=== PATIENT | female | born 1950 | race Caucasian/White ===

== ENCOUNTER 2017-10-03 09:42 | Emergency (ER) | payer BC ==
[2017-10-03 10:49] VITALS: BP 145/84
--- NOTE | 2017-10-03 11:17 | UC ---
Throat Pain/Nasal Aakash HPI - HPI Summary HPI Summary: Pt c/o sinus congestion pressure and pain X 1 week. Pt has history of sinus infections. - History of Current Complaint Chief Complaint: UCRespiratory Stated Complaint: SINUS/MCGARRY Time Seen by Provider: 10/03/17 11:08 Hx Obtained From: Patient Hx Last Menstrual Period: n/a ?: No Onset/Duration: Gradual Onset, Lasting Days, Still Present, Worse Since - onset Severity: Moderate Cough: None Associated Signs & Symptoms: Positive: Sinus Discomfort - Epiglottits Risk Factors Epiglottis Risk Factors: Negative - Allergies/Home Medications Allergies/Adverse Reactions: Allergies Allergy/AdvReac Type Severity Reaction Status Date / Time Sulfa Drugs AdvReac See Comment Verified 10/03/17 10:48 Home Medications: Home Medications Ibuprofen TAB* [Motrin TAB* 400 MG] 400 mg PO BID 10/03/17 [History Confirmed ] PMH/Surg Hx/FS Hx/Imm Hx Previously Healthy: Yes - Surgical History Surgical History: Yes Surgery Procedure, Year, and Place: hernia surgery. R ankle surgery 2006. 2001 lumpectomy to L breast. L knee surgery- 1966. FX RIGHT WRIST 2012. right total knee 07/2015 - Family History Known Family History: Positive: Cardiac Disease - Social History Occupation: Retired Lives: With Family Alcohol Use: Rare Substance Use Type: None Smoking Status (MU): Light Every Day Tobacco Smoker Have You Smoked in the Last Year: Yes - Immunization History Most Recent Influenza Vaccination: Review of Systems Constitutional: Negative Skin: Negative Eyes: Negative ENT: Sinus Congestion, Sinus Pain/Tenderness Respiratory: Negative Cardiovascular: Negative Gastrointestinal: Negative Genitourinary: Negative Motor: Negative Neurovascular: Negative Musculoskeletal: Negative Neurological: Headache Psychological: Negative Is Patient Immunocompromised?: No All Other Systems Reviewed And Are Negative: Yes Physical Exam Triage Information Reviewed: Yes Appearance: Ill-Appearing Vital Signs: Initial Vital Signs Temp 98.3 F 10/03/17 10:45 Pulse 83 10/03/17 10:45 Resp 18 10/03/17 10:45 BP 145/84 10/03/17 10:45 Pulse Ox 99 10/03/17 10:45 Vital Signs Reviewed: Yes Eye Exam: Normal ENT Exam: Other ENT: Positive: Nasal congestion, Sinus tenderness Dental Exam: Normal Neck exam: Normal Respiratory Exam: Normal Cardiovascular Exam: Normal Musculoskeletal Exam: Normal Neurological Exam: Normal Psychological Exam: Normal Skin Exam: Normal Throat Pain/Nasal Course/Dx - Differential Dx/Diagnosis Differential Diagnosis/HQI/PQRI: Sinusitis, URI Provider Diagnoses: sinusitis Discharge - Discharge Plan Condition: Stable Disposition: HOME Prescriptions: Amoxicillin PO (*) [Amoxicillin 875 MG (*)] 875 mg PO Q12H #20 tab predniSONE TAB* [Deltasone TAB*] 30 mg PO DAILY #12 tab Pseudoephedrine-Guaifenesin [Mucinex D 60-600 mg] 1 tab PO DAILY #10 tab Patient Education Materials: Sinusitis (ED) Referrals: Oscar Singer DO [Primary Care Provider] - If Needed
== END 2017-10-03 11:28 | disposition home or self-care (01) ==
LOC: UCCORT 09:42
DX: J32.9 Chronic sinusitis, unspecified (principal); Z72.0 Tobacco use
CPT/HCPCS: 99212; G0463

== ENCOUNTER 2019-05-12 07:21 | Emergency (ER) | payer MEDICARE, BC ==
--- NOTE | 2019-05-12 07:27 | UC ---
General HPI - HPI Summary HPI Summary: Allergy sulfa Pleasant 68 yo female c/o last several days pressure, pain in sinuses - bilateral. Symptoms not better, indeed have been worsening. No known fever perse; however, she did wake up yesterday with sheets and pillowcase soaked. No rash. Pain frontal and maxillary regions. Some post nasal drip. No sob / cp. + dry cough (relates to post nasal drip). No GI / issues reported. - History of Current Complaint Stated Complaint: HEADACHE,SINUS CONCERN Hx Obtained From: Patient Hx Last Menstrual Period: n/a - Allergy/Home Medications Allergies/Adverse Reactions: Allergies Allergy/AdvReac Type Severity Reaction Status Date / Time Sulfa (Sulfonamide Allergy Bruising Verified 05/12/19 07:41 Antibiotics) Home Medications: Home Medications Ascorbic Acid TAB* [Vitamin C TAB*] 500 mg PO QAM 05/12/19 [History Confirmed 05/12/19] Biotin 5,000 mcg PO QAM 05/12/19 [History Confirmed 05/12/19] Bupropion XL* [Wellbutrin XL *] 300 mg PO QAM 05/12/19 [History Confirmed ] Cholecalciferol TAB* [Vitamin D TAB*] 2,000 units PO QAM 05/12/19 [History Confirmed 05/12/19] DULoxetine DR CAP* [Cymbalta CAP*] 20 mg PO QAM 05/12/19 [History Confirmed ] Desloratidine (NF) [Clarinex (NF)] 5 mg PO QAM 05/12/19 [History Confirmed 05/12] Epinastine 0.05% OPHTH(NF) [Elestat 0.05% OPTH PADILLA (NF)] 1 drop BOTH EYES BID [History Confirmed 05/12/19] Fesoterodine (NF) [Toviaz (NF)] 8 mg PO BEDTIME 05/12/19 [History Confirmed ] Levothyroxine TAB* [Synthroid TAB*] 100 mcg PO QAM 05/12/19 [History Confirmed 05/12/19] Mometasone NASAL (NF) [Nasonex (NF)] 1 spray BOTH NARES BID 05/12/19 [History Confirmed 05/12/19] Montelukast Sodium TAB* [Singulair TAB*] 10 mg PO QPM 05/12/19 [History Confirmed 05/12/19] Naproxen Sodium [Aleve] 220 mg PO BID 05/12/19 [History Confirmed 05/12/19] [place]-3 Fatty Acids (Nf) [Fish Oil (NF)] 1,000 mg PO QAM 05/12/19 [History Confirmed 05/12/19] Omeprazole CAP (NF) [Prilosec CAP* 20 MG] 20 mg PO QAM 05/12/19 [History Confirmed 05/12/19] Vitamin THERAPEUTIC TAB* [Theragran TAB*] 1 tab PO QAM 05/12/19 [History Confirmed 05/12/19] PMH/Surg Hx/FS Hx/Imm Hx Previously Healthy: Yes - Surgical History Surgical History: Yes Surgery Procedure, Year, and Place: hernia surgery. R ankle surgery 2006. 2001 lumpectomy to L breast. L knee surgery- 1966. FX RIGHT WRIST 2012. right total knee 07/2015 - Family History Known Family History: Positive: None, Cardiac Disease - Social History Alcohol Use: Rare Substance Use Type: None Smoking Status (MU): Light Every Day Tobacco Smoker Have You Smoked in the Last Year: Yes - Immunization History Most Recent Influenza Vaccination: Review of Systems All Other Systems Reviewed And Are Negative: Yes Constitutional: Positive: Other - see hpi Skin: Positive: Other - see hpi Eyes: Positive: Other - see hpi ENT: Positive: Negative, Other - see hpi Respiratory: Positive: Other - see hpi Cardiovascular: Positive: Negative Gastrointestinal: Positive: Negative Genitourinary: Positive: Negative Motor: Positive: Negative Neurovascular: Positive: Negative Musculoskeletal: Positive: Negative Neurological: Positive: Negative - see hpi Psychological: Positive: Negative Is Patient Immunocompromised?: No Physical Exam Triage Information Reviewed: Yes Appearance: Well-Nourished - sitting up, nad. nontoxic general appearance Vital Signs Reviewed: Yes ENT: Positive: Nasal congestion, Nasal drainage, TM dull, Other - mild post pharyng redness, no uvula deviation, no uvula swelling + sinus pain c/o bilat frontal and maxill region + left nasal turb inflamed Neck exam: Normal Neck: Positive: Supple, Nontender Respiratory Exam: Normal Respiratory: Positive: Chest non-tender, Lungs clear, Normal breath sounds, No respiratory distress, No accessory muscle use Cardiovascular Exam: Normal Cardiovascular: Positive: RRR, Pulses Normal, Brisk Capillary Refill Abdominal Exam: Normal Abdomen Description: Positive: Nontender Musculoskeletal Exam: Normal - gait steady Neurological Exam: Normal - grossly nonfocal Psychological Exam: Normal - conversing easily and appropriately Skin Exam: Normal - no visible or reported rash Course/Dx - Course Course Of Treatment: reviewed coa / tx plan questions as posed answered to the best of my ability. reviewed meds / allergies with pt. encouraged yogurt and / or probiotic see avs - Diagnoses Provider Diagnosis: Sinusitis Discharge - Sign-Out/Discharge Documenting (check all that apply): Patient Departure All imaging exams completed and their final reports reviewed: No Studies - Discharge Plan Condition: Stable Disposition: HOME Prescriptions: Amoxicillin/Clavulanate TAB* [Augmentin TAB 875*] 875 mg PO BID #20 tab Fluticasone NASAL SPRAY 50MCG* [Flonase NASAL SPRAY 50MCG*] 2 spray BOTH NARES DAILY #1 btl Patient Education Materials: Sinusitis (ED) Referrals: Jeanette Silvestre PA [Primary Care Provider] - Additional Instructions: Follow up with your primary care physician, per routine. [Seek medical attention for worse or new problems in the meantime. - Billing Disposition and Condition Condition: STABLE Disposition: Home
[2019-05-12 07:43] VITALS: BP 128/71
== END 2019-05-12 08:30 | disposition home or self-care (01) ==
LOC: UCCORT 07:21
DX: J32.9 Chronic sinusitis, unspecified (principal); Z88.2 Allergy status to sulfonamides; F17.200 Nicotine dependence, unspecified, uncomplicated
CPT/HCPCS: 99212; G0463